=== PATIENT | female | born 1985 | race Caucasian/White ===

== ENCOUNTER 2016-08-21 10:40 | Emergency (ER) | payer OTHER ==
[~2016-08-21] VITALS: Ht 172.7 cm; Wt 127.3 kg
[~2016-08-21 10:40] MED LIST: ALBU8.5H4 INHALATION; AZIT250T4 PO; NOMED
[2016-08-21 11:01] VITALS: BP 152/93; PULSE 102; RESP 10; O2SAT 98
--- NOTE | 2016-08-21 13:04 | DRSVH ---
PROCEDURE: X-RAY THORACIC SPINE, 3 VIEWS INDICATIONS: pain, trauma TECHNIQUE: 3 views of the thoracic spine were acquired. COMPARISON: None. FINDINGS: Bones: On the lateral views, the cervicothoracic junction is adequately visualized and the alignment through this region is within normal limits. The vertebral body heights are within normal limits thr oughout the thoracic spine without evidence to suggest acute compression fracture. The bone minerali zation is within normal limits. No significant degenerative changes of the thoracic spine are evident. Soft tissues: The imaged overlying soft tissues of the chest are within normal limits. IMPRESSION: No acute fracture of the thoracic spine is evident. Dictated by: Mykel Stubbs M.D. on 08/21/2016 at 12:02 Approved by: Mykel Stubbs M.D. on 08/21/2016 at 12:03
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
== END 2016-08-21 14:07 | disposition home or self-care (01) ==
LOC: SED 10:40
DX: M54.5 Low back pain (principal); F17.200 Nicotine dependence, unspecified, uncomplicated; Z87.81 Personal history of (healed) traumatic fracture; Z88.1 Allergy status to other antibiotic agents; Z88.5 Allergy status to narcotic agent; Z91.040 Latex allergy status
CPT/HCPCS: 72072; 96372; 99284; J1885